=== PATIENT | male | born 1985 | race Caucasian/White ===

== ENCOUNTER 2017-01-19 23:00 | Emergency (ER) | payer OTHER, SELFPAY ==
[~2017-01-19 23:00] MED LIST: AMB10 PO; BUSPAR15 M1 PO; CHLORPROMAZ200 MG PO; CIP5 PO; CLARIT10 PO; CPZ100 PO; CRANBERRY400 MG PO; FLOMAX4 PO; I20 PO; I40 PO; IRON325 MG PO; KLONO1 PO; LOVAZA1 GM PO; MELA3 PO; MOBIC15 MG PO; MULTIVITAMI1 PO; NEUR600 PO; PLAQ200B PO; PR25 PO; PRILOSEC40 MG PO; PROBIOTIC CAPSULES PO; PROMEGA PO; REMERON30 MG PO; TOPAMAX100 PO; VITAMIN B-2100 MG PO; VITAMIN B12 TABLET SL; VITAMIN C PO; VITAMIN D31000 UNIT PO; WELLSR150 PO; ZYRTEC ALLGY10 MG PO
[2017-01-19 23:37] LABS: ASCORBIC ACID (UR NOT ORDER) NEG (NEG); BILIRUBIN, URINE NEGATIVE (NEG); ER URINALYSIS TAT 0 Hrs 10 Mins; KETONE, URINE NEGATIVE (NEG); LEUKOCYTE ESTERASE(NOT OR NEG (NEG); NITRITE (URINE) NEG (NEG); WBC (NOT ORDERED) (RFLEX) 1 (0-5)
[2017-01-19 23:42] LABS: BASOPHILS 0 %; EOSINOPHILS 0 %; ER CBC TAT 0 Hrs 15 Mins; HEMATOCRIT 46.6 % (40.0-51.0); IMMATURE GRANULOCYTES 0.2 %; IMMATURE GRANULOCYTES ABSOLUTE 0.02 10/3/uL (0.0-0.11); LYMPHOCYTES 30.3 %; LYMPHOCYTES ABSOLUTE 2.55 10/3/uL (0.67-4.30); MEAN CORPUS HGB CONC 36.5 g/dL (32.0-36.0); MEAN CORPUSCULAR HEMOGLOB 31.7 pg (26.0-34.0); MEAN PLATELET VOLUME 9.6 fL (9.2-13.0); MONOCYTES 9.7 %; MONOCYTES ABSOLUTE 0.82 10/3/uL (0.21-1.20); NEUTROPHILS 59.8 %; NEUTROPHILS ABSOLUTE 5.03 10/3/uL (2.02-8.40); NUCLEATED RED BLOOD CELLS 0.7 /100WBC (0-0); PLATELET COUNT 181 10/3/uL (150-400); RBC DISTRIBUTION WIDTH 13.5 % (12.0-16.0); RED CELL COUNT 5.36 10/6/uL (4.7-6.1); WHITE BLOOD CELLS 8.4 10/3/uL (4.5-10.5)
[2017-01-19 23:43] LABS: MANUAL DIFF NO %; MEAN CORPUSCULAR VOLUME 86.9 fL (80-100)
[2017-01-19 23:49] LABS: BUN (BLOOD UREA NITROGEN) 8 MG/DL (6-23); CHLORIDE, SERUM 109 MMOL/L (96-112); CO2 (CARBON DIOXIDE) 22 MMOL/L (24-34); GLUCOSE, SERUM 100 MG/DL (60-99); POTASSIUM, SERUM 3.6 MMOL/L (3.5-5.3); SGOT(AST) 24 U/L (5-40); SGPT(ALT) 38 U/L (5-65); SODIUM, SERUM 137 MMOL/L (135-148); TOTAL BILIRUBIN 0.4 MG/DL (0-1.2)
[2017-01-19 23:53] LABS: A/G RATIO 1.6 (0.7-1.9); ALBUMIN 4.3 G/DL (3.5-5.0); ALKALINE PHOSPHATASE 68 U/L (45-117); CREATININE 1.18 MG/DL (0.70-1.30); GFR AFRICAN AMERICAN 93 ML/MIN (>=60); GFR NON AFRICAN AMERICAN 81 ML/MIN (>=60); GLOBULIN 2.7 G/DL (2.5-4.1)
== END 2017-01-20 03:46 | disposition home or self-care (01) ==
LOC: ER 23:00
PROVIDERS: Emergency Medicine
DX: R19.7 Diarrhea, unspecified (principal); R10.13 Epigastric pain; R10.817 Generalized abdominal tenderness; Z87.442 Personal history of urinary calculi; M06.9 Rheumatoid arthritis, unspecified; F31.9 Bipolar disorder, unspecified; K21.9 Gastro-esophageal reflux disease without esophagitis; Z88.8 Allergy status to other drugs, medicaments and biological substances; Z79.899 Other long term (current) drug therapy
CPT/HCPCS: 74176; 80053; 81001; 83690; 85025; 99284